=== PATIENT | male | born 2000 | race Caucasian/White ===

== ENCOUNTER 2018-04-24 21:15 | Emergency (ER) | payer MEDICAID, SELFPAY ==
[2018-04-24 21:16] VITALS: BP 166/103; PULSE 101; RESP 20; TEMP 36.4; O2SAT 96; BMI 39.2
--- NOTE | 2018-04-24 22:43 | ED.DCSUM_ITS ---
- ER Visit Summary Date of Service: 04/24/18 Chief Complaint: Wound check History of Present Illness: The patient is a [address] Nneka Sanchez. He reports that this morning he fell and bit his lip. He did not have loss of consciousness. He was seen in outside hospital and had 3 stitches placed. He is concerned that he needs to have another stitch placed. He denies any drainage from the area. Does report he has a burning pain is 4-10 severity. He is not on antibiotics. He denies any loose teeth or dental malocclusion. Physical Examination: Vitals: Stable. Afebrile. Head: 3 cm laceration in the midline of his lower lip that has been repaired with 3 simple interrupted Vicryl sutures. There is no drainage, erythema, or induration. Neck: No vertebral tenderness. Full ROM without difficulty. Cleared by NEXUS criteria. Back: No vertebral tenderness. General: A&O x 3. NAD. Cardiovascular exam: Regular rate and rhythm, no murmur, rub or gallop. Respiratory exam: Chest nontender. No crepitus. Clear to auscultation bilaterally. No wheezes or stridor. Abdominal exam: Soft, nontender, nondistended, normal bowel sounds. No pain in RUQ or LUQ specifically. No peritoneal signs. Extremity: Atraumatic. No pain with range of motion. Emergency Department Course and Treatment: I discussed with the patient that another stitch should not be placed due to the passage of time since the injury. I also discussed and the risks of infection. He was given a dose of amoxicillin here. Treatment Plan: Patient will be discharged on amoxicillin. Instructed to follow-up with Dr. Nneka Sanchez in 1 week if not improving. Return to the emergency department for any worsening symptoms. Disposition: To home in improved and stable condition. Impression: 1. Wound check. This note was generated with [employer] dictation software. It may contain incorrect words, spelling, and punctuation that were not noted in review of the chart prior to signing ED Disposition - Plan for ED Patient: Disposition: Home or Assisted Living Chief Complaint: Wound Check Instructions: ED Sutr Check No Infec Prescriptions: Amoxicillin 500 mg PO TID #21 tablet Referrals: Nneka Sanchez MD [Primary Care Provider] - 1 Week if not improving
[2018-04-24 22:48] VITALS: RESP 16
--- NOTE | 2018-04-24 22:49 | ED.RN ---
REVIEWED D/C INSTRUCTIONS, FOLLOW UP CARE, PRESCRIPTION, AND S/S THAT WOULD WARRANT A RETURN TO THE ED WITH PT. PT VERBALIZED AN UNDERSTANDING AND DENIES FURTHER QUESTIONS FOR THIS RN. PT SKIN P/W/D, RESP EVEN AND UNLABORED, PT A&O X 3, NO DISTRESS NOTED. PT AMBULATED OUT OF ED, GAIT STEADY.
== END 2018-04-24 22:50 | disposition home or self-care (01) ==
LOC: ED 22:35
PROVIDERS: Emergency Provider Emergency Medicine; Family Provider Pediatrics; PCP Pediatrics
DX: S01.551D Open bite of lip, subsequent encounter (principal); F90.9 Attention-deficit hyperactivity disorder, unspecified type; F17.220 Nicotine dependence, chewing tobacco, uncomplicated; Z79.899 Other long term (current) drug therapy; W19.XXXA Unspecified fall, initial encounter
CPT/HCPCS: 99282